=== PATIENT | female | born 1985 | race Caucasian/White ===

== ENCOUNTER 2017-05-18 19:38 | Emergency (ER) | payer MEDICAID ==
[2017-05-18 20:38] LABS: % BASOPHILS 0.4 % (0.0-2.0); % EOSINOPHILS 0.2 % (0.0-5.0); % LYMPHOCYTES 21.3 % (20.0-50.0); % MONOCYTES 7.3 % (2.0-10.0); % NEUTROPHILS 70.8 % (40.0-80.0); HEMATOCRIT 37.9 % (41.0-60); HEMOGLOBIN 12.9 gm/dL (12-16); LYMPHOCYTE ABSOLUTE 0.8 Th/cmm (1.5-3.0); MEAN CELL VOLUME 89.3 fl (81-100); MEAN CORPUSCULAR HEMOGLOBIN 30.5 pg (27.0-31.0); MEAN CORPUSCULAR HGB CONC 34.2 pg (28.0-36.0); MEAN PLATELET VOLUME 7.7 fl; MONOCYTE ABSOLUTE 0.3 Th/cmm (0.3-1.0); NEUTROPHILE ABSOLUTE 2.5 Th/cmm (1.8-8.0); PLATELET COUNT 194 Th/cmm (150-400); RED BLOOD COUNT 4.24 Mil/cmm (3.80-5.10); RED CELL DISTRIBUTION WIDTH 12.4 % (11.5-20.0)
[2017-05-18] MEDS ORDERED: Sodium Chloride 0.9% 1,000 ML IV ONE (20:39)
[2017-05-18 20:40] LABS: WHITE BLOOD COUNT 3.6 Th/cmm (4.8-10.8)
[2017-05-18 20:53] LABS: URINE BILIRUBIN NEGATIVE (NEGATIVE); URINE BLOOD NEGATIVE (NEGATIVE); URINE GLUCOSE (UA) NEGATIVE (NEGATIVE); URINE KETONE TRACE mg/dL (NEGATIVE); URINE LEUKOCYTE ESTERASE NEGATIVE (NEGATIVE); URINE MICROSCOPIC INDICATED? YES; URINE NITRATE NEGATIVE (NEGATIVE); URINE PH 6.5 (4.6 - 8.0); URINE PROTEIN NEGATIVE (NEGATIVE); URINE SOURCE RANDOM; URINE UROBILINOGEN 0.2 E.U./dL (0.2 - 1.0)
[2017-05-18 20:55] LABS: ALB/GLOB RATIO 1.8 (1.0-1.8); ALBUMIN 4.3 gm/dL (3.7-5.3); ALKALINE PHOSPHATASE 143 U/L (34-104); ANION GAP 13.1 (7.0-16.0); BILIRUBIN,TOTAL 0.3 mg/dL (0.3-1.0); BUN - UREA NITROGEN 8 mg/dL (7-25); CALCIUM SERUM 8.7 mg/dL (8.6-10.3); CARBON DIOXIDE 23.2 mEq/L (21.0-31.0); CHLORIDE 102 mEq/L (98-107); CREATININE - SERUM 0.7 mg/dL (0.6-1.2); GFR AFRICAN-AMERICAN > 60.0 ml/min (>90); GFR NON AFRICAN-AMERICAN > 60.0 ml/min; GLUCOSE 115 mg/dL (70-105); POTASSIUM SERUM 3.3 mEq/L (3.5-5.1); SGOT 218 U/L (13-39); SGPT/ALT 122 U/L (7-52); SODIUM SERUM 135 mEq/L (136-145); TOTAL PROTEIN,SERUM 6.7 gm/dL (6.0-8.3)
[2017-05-18 20:58] LABS: URINE BACTERIA FEW /hpf (NONE SEEN); URINE CLARITY SLIGHTLY HAZY (CLEAR); URINE COLOR YELLOW; URINE EPITHELIAL CELLS MODERATE /lpf (FEW); URINE RBC 0-1 /hpf (0-5)
[2017-05-18 21:14] LABS: AMPHETAMINE URINE NEGATIVE (NEGATIVE); BARBITURATES URINE NEGATIVE (NEGATIVE); BENZODIAZEPINES QUAL URINE NEGATIVE (NEGATIVE); CANNABINOID THC NEGATIVE (NEGATIVE); COCAINE METABOLITE QUAL URINE NEGATIVE (NEGATIVE); METHADONE URINE NEGATIVE (NEGATIVE); METHAMPHETAMINES QUAL URINE NEGATIVE (NEGATIVE); OPIATES (MORPHINE) QUAL. URINE POSITIVE (NEGATIVE); PHENCYCLIDINE (PCP) URINE NEGATIVE (NEGATIVE); TRICYCLICS (TCA) QUAL. URINE NEGATIVE (NEGATIVE)
--- NOTE | 2017-05-18 21:25 | ED Physician Chart ---
ED Chief Complaint/HPI - Patient Information Date Seen:: 05/18/17 Time Seen:: 19:50 Chief Complaint:: VOMITING History of Present Illness:: THIS IS A 31 YO FEMALE WITH VOMITING AND CHEST CONGESTION WITH A DEEP COUGH THAT HAS BEEN NON-PRODUCTIVE. SHE ALSO THINKS THAT SHE HAS HAD FEVER. SHE DENIES AND PAINFUL URINATION. SHE DENIES DIARRHEA AND CONSTIPATION. THE PAIN ONLY COME ON DEEP COUGHING 5/10 IN THE CHEST. SHE ALSO IS CONCERNED ABOUT THE RIGHT UPPER QUADRANT PAIN. Allergies:: Allergies Allergy/AdvReac Type Severity Reaction Status Date / Time No Known Allergies Allergy Verified 05/18/17 20:19 Vitals:: Vital Signs - 8 hr 05/18/17 19:48 Temp 98.7 F HR 112 RR 16 BP 113/63 O2 Sat % 100 Historian:: Patient Review:: Nurse's Note Reviewed ED Review of Systems - Review of Systems General/Constitutional: Fever, No chills, No weight loss, No weakness, No diaphoresis, No edema, No loss of appetite Skin: No skin lesions, No rash, No bruising Head: No headache, No light-headedness Eyes: No loss of vision, No pain, No diplopia ENT: No earache, No nasal drainage, No sore throat, No tinnitus Neck: No neck pain, No swelling, No thyromegaly, No stiffness, No mass noted Cardio Vascular: No chest pain, No palpitations, No PND, No orthopnea, No edema Pulmonary: No SOB, Cough, No sputum, No wheezing GI: Nausea, Vomiting, No diarrhea, No pain, No melena, No hematochezia, No constipation, No hematemesis G/U: No dysuria, No frequency, No hematuria Musculoskeletal: No bone or joint pain, No back pain, No muscle pain Endocrine: No polyuria, No polydipsia Psychiatric: No prior psych history, No depression, No anxiety, No suicidal ideation Hematopoietic: No bruising, No lymphadenopathy Allergic/Immuno: No urticaria, No angioedema Neurological: No syncope, No focal symptoms, No weakness, No paresthesia, No headache, No seizure, No dizziness, No confusion, No vertigo ED Past Medical History - Past Medical History Obtainable: Yes Past Medical History: No significant medical hx Social History: Non Smoker, No Alcohol, No Drug Use Surgical History: Cholecystectomy, other (TONSILS REMOVED, HIRO YOUNGCK, TUBALIGATION) Psychiatricy History: None Medication: Reviewed Family Medical History - Family Member Grandmother Living Status: Still Living ED Labs/Radiology/EKG Results - Lab Results Results: Laboratory Tests 05/18/17 05/18/17 05/18/17 19:56 20:00 20:00 WBC RBC Hgb Hct MCV MCH MCHC Differential RDW Plt Count MPV Neutrophils % Lymphocytes % Monocytes % Eosinophils % Basophils % Sodium Potassium Chloride Carbon Dioxide Anion Gap BUN Creatinine Est GFR ( Amer) Est GFR (Non-Af Amer) BUN/Creatinine Ratio Glucose Calcium Total Bilirubin AST ALT Alkaline Phosphatase Total Protein Albumin Globulin Albumin/Globulin Ratio Urine Source RANDOM Urine Color YELLOW Urine Clarity SLIGHTLY HAZY Urine pH 6.5 Ur Specific [place] 1.015 Urine Protein NEGATIVE Urine Glucose (UA) NEGATIVE Urine Ketones TRACE Urine Blood NEGATIVE Urine Nitrate NEGATIVE Urine Bilirubin NEGATIVE Urine Urobilinogen 0.2 Ur Leukocyte Esterase NEGATIVE Urine RBC 0-1 Urine WBC 2-5 Ur Epithelial Cells MODERATE Urine Bacteria FEW POC Ur Test Negative Urine Opiates Screen POSITIVE H Urine Methadone Screen NEGATIVE Ur Barbiturates Screen NEGATIVE Ur Tricyclics Screen NEGATIVE Ur Phencyclidine Scrn NEGATIVE Amphetamines Screen NEGATIVE U Methamphetamines Scrn NEGATIVE U Benzodiazepines Scrn NEGATIVE U Cocaine Metab Screen NEGATIVE U Cannabinoids Screen NEGATIVE 05/18/17 05/18/17 20:30 20:30 WBC 3.6 L RBC 4.24 Hgb 12.9 Hct 37.9 L MCV 89.3 MCH 30.5 MCHC Differential 34.2 RDW 12.4 Plt Count 194 MPV 7.7 Neutrophils % 70.8 Lymphocytes % 21.3 Monocytes % 7.3 Eosinophils % 0.2 Basophils % 0.4 Sodium 135 L Potassium 3.3 L Chloride 102 Carbon Dioxide 23.2 Anion Gap 13.1 BUN 8 Creatinine 0.7 Est GFR ( Amer) > 60.0 Est GFR (Non-Af Amer) > 60.0 BUN/Creatinine Ratio 11.4 Glucose 115 H Calcium 8.7 Total Bilirubin 0.3 AST 218 H ALT 122 H Alkaline Phosphatase 143 H Total Protein 6.7 Albumin 4.3 Globulin 2.4 Albumin/Globulin Ratio 1.8 Urine Source Urine Color Urine Clarity Urine pH Ur Specific [place] Urine Protein Urine Glucose (UA) Urine Ketones Urine Blood Urine Nitrate Urine Bilirubin Urine Urobilinogen Ur Leukocyte Esterase Urine RBC Urine WBC Ur Epithelial Cells Urine Bacteria POC Ur Test Urine Opiates Screen Urine Methadone Screen Ur Barbiturates Screen Ur Tricyclics Screen Ur Phencyclidine Scrn Amphetamines Screen U Methamphetamines Scrn U Benzodiazepines Scrn U Cocaine Metab Screen U Cannabinoids Screen - Radiology Results Results: ct scan of the abdomen and pelvis = acute disease ED Assessment - Assessment General Assessment: gastritis bronchitis ED Septic Shock - . Is Septic Shock (SBP<90, OR Lactate>4 mmol\L) present?: No - <6hrs of presentation: Vital Signs: Vital Signs - 8 hr 05/18/17 19:48 Temp 98.7 F HR 112 RR 16 BP 113/63 O2 Sat % 100 ED Reassessment (Disposition) - Reassessment Reassessment Condition:: Improved - Diagnosis Diagnosis:: gastritis bronchitis - Aftercare/Follow up Instructions Aftercare/Follow-Up Instructions:: Counseled pt regarding lab results/diagnosis & need follow up, Refer to Discharge Instructions, Counseled pt & family regarding lab results/diagnosis & need follow up - Patient Disposition Discharge/Transfer:: Home Condition at Disposition:: Improved ED Discharge Plan - Patient Disposition Instructions: Gastritis, Adult, [id number], Bronchitis, [id number] Additional Instructions: follow up with your primary medical doctor radha take prescribed medications as ordered
[2017-05-18] MEDS ORDERED: Lactated Ringer 1,000 ML IV ONE (21:35)
[2017-05-18] MEDS ORDERED: IOHEXOL 300mgI/mL 100 ML VIAL ONE (22:47)
--- NOTE | 2017-05-19 09:57 | Diagnostic Imaging Report ---
CT abdomen and pelvis with intravenous contrast Indication: Right upper pain Comparison: None, Technique: Axial images were obtained from the lung bases to the bilateral proximal femurs with IV contrast. Coronal reconstructions were made. total DLP: [id number], CTDI12.7 FINDINGS: Minimal passive atelectatic/consolidation changes of the lung bases are no evidence of focal hepatic lesions. The patient is status post cholecystectomy. No focal splenic lesions. The spleen is mildly prominent measuring 13 cm. No focal pancreatic or adrenal lesions. No hydronephrosis or nephrolithiasis. Small fat-containing umbilical hernia is noted. Small amount of free fluid is seen within the pelvis. Bilateral adnexal cystic changes are seen the largest on the left side measuring 3 cm. Moderate stool is seen with gas-filled loops of bowel. No evidence of appendicitis. No evidence of free abdominal air. The osseous structures demonstrate no acute abnormalities. IMPRESSION: Evidence of prior cholecystectomy. Nonspecific gas-filled loops of bowel without evidence of bowel obstruction. Note evidence of appendicitis Mildly prominent spleen measuring 13.3 cm. 3 cm left adnexal cystic lesion. Recommend short-term follow-up ultrasound to ensure resolution. Small amount of free fluid in the pelvis, possibly physiologic. Bibasilar passive atelectasis and minimal consolidative changes.
== END 2017-05-19 00:10 | disposition home or self-care (01) ==
LOC: ER 19:38
DX: K29.70 Gastritis, unspecified, without bleeding (principal); J20.9 Acute bronchitis, unspecified
CPT/HCPCS: 99285; 96361; 96372; 96374; 96375; 74177; 36415; 80307; 85025; 81001; 82140; 82150; 81025; 83690; 80053; J1885; J2405; J0696; J2930; J7030; Q9967